=== PATIENT | female | born 1940 | race Caucasian/White ===

== ENCOUNTER 2016-06-02 16:12 | Emergency (ER) | payer OTHER ==
[2016-06-02 16:30] VITALS: TEMP 98.1
--- NOTE | 2016-06-02 17:25 | EDPHY ---
HPI/HX/ROS/PE/MDM Narrative: CHIEF COMPLAINT: Worsening restless leg symptoms. HPI: The patient is a 75-year-old female with complicated past medical history significant for restless leg syndrome and abnormal vestibular system. The patient is recently in town from [place]. She reports significant worsening of her restless legs symptoms at night as well as a generalized shakiness. She notes that in the past this has happened when she has had low sodium. She initially presented to urgent care to get her sodium level checked, but they sent her to the ER for further evaluation. The patient denies any new numbness , weakness or tingling. No fever. She does report increased urination. The patient also reports that she was recently diagnosed with shingles on her chest but is not currently taking any medication. REVIEW OF SYSTEMS: Aside from elements discussed in the HPI, a comprehensive 10-point review of systems was reviewed and is negative. PMH: Restless leg syndrome, periodic limb movements. This tibial abnormality. SOCIAL HISTORY: Lives part-time in [place] part-time [place]. Primary care physician is Dr. Navas. Denies alcohol or drug abuse. PHYSICAL EXAM: General:Patient is alert, in no acute distress. Head: Normocephalic and atraumatic ENT:Eyes are normal to inspection. ENT inspection normal. Neck: Normal inspection. Full range of motion. Respiratory:No respiratory distress. Breath sounds normal bilaterally. Cardiovascular: Regular rate and rhythm. Strong peripheral pulses. Normal cap refill. Abdomen:The abdomen is nontender to palpation. There are no peritoneal signs. There are normal bowel sounds. Back: Normal to inspection. No tenderness to palpation. Extremities: Normal appearance. Full range of motion. Neuro: Oriented x3. Normal motor function. Normal sensory function. MDM: This patient presents essentially to make sure that she does not have an abnormally low sodium level. We checked her labs which are unremarkable. She is comfortable with going home without further workup. - Data Points Laboratory Results: Laboratory Results 06/02/16 17:30 06/02/16 17:30 06/02/16 06/02/16 06/02/16 17:35 17:30 17:30 WBC 6.50 10^3/uL 10^3/uL (3.80-9.50) RBC 4.26 10^6/uL 10^6/uL (4.18-5.33) Hgb 12.9 g/dL g/dL (12.6-16.3) Hct 37.5 % L % (38.0-47.0) MCV 88.0 fL fL (81.5-99.8) MCH 30.3 pg pg (27.9-34.1) MCHC 34.4 g/dL g/dL (32.4-36.7) RDW 13.7 % % (11.5-15.2) Plt Count 422 10^3/uL H 10^3/uL (150-400) MPV 8.7 fL fL (8.7-11.7) Neut % (Auto) 59.5 % % (39.3-74.2) Lymph % (Auto) 31.2 % % (15.0-45.0) [place] % (Auto) 7.2 % % (4.5-13.0) Eos % (Auto) 1.2 % % (0.6-7.6) Baso % (Auto) 0.6 % % (0.3-1.7) Nucleat RBC Rel Count 0.0 % % (0.0-0.2) Absolute Neuts (auto) 3.86 10^3/uL 10^3/uL (1.70-6.50) Absolute Lymphs (auto) 2.03 10^3/uL 10^3/uL (1.00-3.00) Absolute Monos (auto) 0.47 10^3/uL 10^3/uL (0.30-0.80) Absolute Eos (auto) 0.08 10^3/uL 10^3/uL (0.03-0.40) Absolute Basos (auto) 0.04 10^3/uL 10^3/uL (0.02-0.10) Absolute Nucleated RBC 0.00 10^3/uL 10^3/uL (0-0.01) Immature Gran % 0.3 % % (0.0-1.1) Immature Gran # 0.02 10^3/uL 10^3/uL (0.00-0.10) Sodium 132 mEq/L L mEq/L (134-144) Potassium 4.5 mEq/L mEq/L (3.5-5.2) Chloride 94 mEq/L L mEq/L (97-110) Carbon Dioxide 28 mEq/l mEq/l (22-31) Anion Gap 10 mEq/L mEq/L (8-16) BUN 11 mg/dL mg/dL (7-23) Creatinine 0.7 mg/dL mg/dL (0.6-1.0) Estimated GFR > 60 Glucose 110 mg/dL H mg/dL (70-100) Calcium 9.6 mg/dL mg/dL (8.5-10.4) Urine Color COLORLESS Urine Appearance CLEAR Urine pH 6.0 (5.0-7.5) Ur Specific [place] 1.002 (1.002-1.030) Urine Protein NEGATIVE (NEGATIVE) Urine Ketones NEGATIVE (NEGATIVE) Urine Blood NEGATIVE (NEGATIVE) Urine Nitrate NEGATIVE (NEGATIVE) Urine Bilirubin NEGATIVE (NEGATIVE) Urine Urobilinogen NEGATIVE EU EU (0.2-1.0) Ur Leukocyte Esterase NEGATIVE (NEGATIVE) Urine Glucose NEGATIVE (NEGATIVE) General Time Seen by Provider: 06/02/16 17:10 Initial Vital Signs: Initial Vital Signs Temperature (C) 36.7 C 06/02/16 16:20 Heart Rate 78 06/02/16 16:20 Respiratory Rate 18 06/02/16 16:20 Blood Pressure 130/77 H 06/02/16 16:20 O2 Sat (%) 94 06/02/16 16:20 O2 Delivery Mode Room Air Allergies/Adverse Reactions: prednisone Allergy (Intermediate, Verified 06/02/16 16:31) hypertension/palpitations ANTIHISTAMINES Allergy (Intermediate, Uncoded 07/16/09 00:30) Other-Enter Comments CIMITRAL Allergy (Unknown, Uncoded 07/16/09 00:30) Unknown Home Medications: Medication Instructions Recorded CLONAZEPAM 07/15/09 Omeprazole 40 mg PO DAILY 06/02/16 Departure - Departure Disposition: Home, Routine, Self-Care Clinical Impression: Restless leg syndrome Condition: Good Instructions: Restless Legs Syndrome (ED) Additional Instructions: Follow-up with your primary doctor within 72 hours. Return to the Emergency Department for fever, chest pain, shortness of breath, increasing pain or other worsening of condition. Referrals: Jorge Navas MD [Primary Care Provider] - As per Instructions
[2016-06-02 17:57] LABS: % IMMATURE GRANULYOCYTES 0.3 % (0.0-1.1); ABSOLUTE IMMATURE GRANULOCYTES 0.02 10^3/uL (0.00-0.10); ADD DIFF? NO; ADD MORPH? NO; ADD SCAN? NO; ATYPICAL LYMPHOCYTE FLAG 20 (0-99); FRAGMENT RBC FLAG 0 (0-99); HEMATOCRIT 37.5 % (38.0-47.0); HEMOGLOBIN 12.9 g/dL (12.6-16.3); LEFT SHIFT FLG 0 (0-99); LIPEMIA HEMOLYSIS FLAG 90 (0-99); MEAN CELL HEMOGLOBIN 30.3 pg (27.9-34.1); MEAN CELL HEMOGLOBIN CONCENTR. 34.4 g/dL (32.4-36.7); MEAN PLATELET VOLUME 8.7 fL (8.7-11.7); PLATELET CLUMPS FLAG 10 (0-99); PLATELET COUNT 422 10^3/uL (150-400); RED BLOOD CELL COUNT 4.26 10^6/uL (4.18-5.33); RED CELL DISTRIBUTION WIDTH 13.7 % (11.5-15.2)
[2016-06-02 18:09] LABS: ANION GAP 10 mEq/L (8-16); CALCIUM 9.6 mg/dL (8.5-10.4); CARBON DIOXIDE 28 mEq/l (22-31); CHLORIDE 94 mEq/L (97-110); CREATININE 0.7 mg/dL (0.6-1.0); GLOMERULAR FILTRATION RATE > 60; GLUCOSE 110 mg/dL (70-100); POTASSIUM 4.5 mEq/L (3.5-5.2); SODIUM 132 mEq/L (134-144)
[2016-06-02 18:28] LABS: COLOR COLORLESS; LEUKOCYTE ESTERASE,URINE NEGATIVE (NEGATIVE); NITRITE,URINE NEGATIVE (NEGATIVE)
[2016-06-02 18:55] VITALS: BP 132/77; PULSE 88; RESP 16; O2SAT 96
== END 2016-06-02 18:53 | disposition home or self-care (01) ==
DX: G25.81 Restless legs syndrome (principal)

== ENCOUNTER 2017-07-17 20:56 | Emergency (ER) | payer OTHER ==
[2017-07-17 21:41] LABS: PLATELET COUNT 363 10^3/uL (150-400)
--- NOTE | 2017-07-17 21:47 | CPEKG ---
Heart Rate: 64 RR Interval: 938 P-R Interval: 196 QRSD Interval: 96 QT Interval: 416 QTC Interval: 430 P Delta: 53 QRS Delta: -11 T Wave Delta: 69 EKG Severity - ABNORMAL ECG - EKG Impression: SINUS RHYTHM EKG Impression: PROBABLE ANTEROSEPTAL INFARCT, OLD Electronically Signed By: Damaris Fraire 17-Jul-2017 22:46:57
--- NOTE | 2017-07-17 22:27 | EDPHY ---
H & P Smoking Status: Former smoker Time Seen by Provider: 07/17/17 21:36 HPI/ROS: HPI Blurry vision. 76-year-old female by private vehicle with her friend. 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 She has seen a retinal specialist here in [facility] recently. She reports that she also has a left-sided chronic vestibular neuritis that gives her balance problems. She reports that she took a nap today. She woke up at 5:30 p.m. And had blurry vision from both eyes which she describes as symmetrical. She has had blurry vision in her eyes in the past. She has seen an mcat tutor in [facility] where she lives part-time as well and has been told this is secondary to residual affects from cataract surgery. She reports however that her blurry vision this evening at 5:30 p.m. Seems worse than usual. She also complains of chest wall pain left mid anterior lateral. She reports that she has had this multiple times in the past and states that it is worse when she palpates the rib area involved. She has been seen by local physicians here and standard cardiac workups with provocative testing all of which has been unremarkable. She has been diagnosed with costal chondritis. She denies any other complaints. ROS: Constitutional: No fever, no chills. No weakness. Eyes: No discharge. As above. No ocular pain. ENT: No sore throat. No nasal congestion or rhinorrhea. Respiratory: No cough. No shortness of breath. Cardiac: As above, no palpitations. Gastrointestinal: No abdominal pain, no vomiting, no diarrhea. Genitourinary: No hematuria. No dysuria or increased frequency with urination. Musculoskeletal: No back pain. No neck pain. No myalgias or arthralgias. Skin: No rashes. Neurological: No headache. No focal weakness or altered sensation. Past medical history: Hyponatremia, hysterectomy, as above. She received her healthcare both here and in [place] in [place]. Social history: She is with her friend. Nonsmoker. No alcohol. Physical Exam: General Appearance: Alert, no distress. This patient is responding to questions appropriately and in full sentences. This patient appears well- hydrated and well-nourished. Eyes: Pupils equal and round and reactive to light bilaterally at 3-1 mm, no pallor or injection. No lid edema, erythema or injection. Respiratory: There are no retractions, lungs are clear to auscultation with good air movement bilaterally. Cardiovascular: Regular rate and rhythm. No murmur. Gastrointestinal: Abdomen is soft and nontender, no masses, bowel sounds normal. No focal tenderness at McBurney's point. No Josue sign. Neurological: Motor sensory function is grossly intact. Cranial nerves are normal. Cerebellar function is normal. Gait is normal. Skin: Warm and dry, no rashes. Musculoskeletal: Neck is supple and nontender. Extremities are symmetrical. All joints range without pain or impingement. Psychiatric: No agitation. No depression. Database: EKG: EKG time is 9:45 p.m.; EKG shows a narrow complex normal sinus rhythm with a ventricular rate of 64. The DC, QRS, QT intervals are within normal limits. There are no ST-T wave changes indicative of ischemic or injury pattern. No evidence of right heart strain. Interpreted by me. Imaging: CT scan of head without contrast: Negative for acute pathology. Some atrophy noted. Results were discussed with staff radiologist Dr. Benjie Champion. Bilateral carotid artery Doppler ultrasounds. Procedures: Emergency department course: Vital signs reviewed. She has mild to moderate hypertension. Vital signs otherwise normal. Her neurologic Assessment is reassuring. Visual acuities will be obtained. EKG obtained and reviewed by myself. She consents to noncontrast CT imaging of her brain and carotid artery Doppler ultrasounds. Visual acuities; 20/30 on the right, 20/50 on the left, 20/30 bilaterally. Patient's blood work reviewed. Hyponatremia with a sodium of 124 noted. The patient does have a history of chronic hyponatremia. Her baseline seems to run in the 127-130 range. Other than the complaint of blurry vision she has been asymptomatic. I do not feel that her hyponatremia now is causing her current symptoms. Assuming her imaging is unremarkable. I feel she can be discharged safely to home with her friend and follow-up on Thursday with her primary care physician and her mcat tutor for re-evaluation of her vision and repeat of her sodium. This plan was discussed with her at 11:05 p.m.. She feels comfortable with this. Her care was turned over to Dr. Caden Enciso at 11: 00 p.m.. He will follow up on results of carotid artery Doppler ultrasounds. Differential Diagnosis: The differential diagnosis on this patient includes but is not limited to cataracts, fatigue. CVA, glaucoma, MS, Guillain-Sheridan retinal detachment, vitreous humor detachment unlikely. This represents a partial list of diagnoses considered. These considerations are based on history, physical exam , past history, reassessment and diagnostic testing. (Damaris Fraire) Constitutional: Initial Vital Signs Temperature (C) 36.6 C 07/17/17 21:01 Heart Rate 67 07/17/17 21:01 Respiratory Rate 16 07/17/17 21:01 Blood Pressure 141/84 H 07/17/17 21:01 O2 Sat (%) 92 07/17/17 21:01 O2 Delivery Mode Room Air Allergies/Adverse Reactions: prednisone Allergy (Intermediate, Verified 07/17/17 21:05) hypertension/palpitations ANTIHISTAMINES Allergy (Intermediate, Uncoded 07/17/17 21:05) Other-Enter Comments CIMITRAL Allergy (Unknown, Uncoded 07/17/17 21:05) Unknown Home Medications: Medication Instructions Recorded CLONAZEPAM 07/15/09 Omeprazole 40 mg PO DAILY 06/02/16 Medical Decision Making - Diagnostics Imaging Results: Imaging Impressions Carotid Doppler Study 07/17/17 22:20 Impression: 1. Mild atherosclerotic disease bilateral carotid bulbs. 2. Velocities correlate to less than 50% diameter stenosis of the origin of the right internal carotid artery. 3. Velocities correlate to less than 50% diameter stenosis of the origin of the left internal carotid artery. 4. Bilateral vertebral arteries are patent with antegrade flow. Measurement of carotid stenosis is based on velocity parameters that correlate the residual internal carotid diameter with [place] Symptomatic Carotid Endarterectomy Trial (NASCET) based stenosis levels. Findings and recommendations discussed with Emergency Department physician, Dr. Enciso at 23:31 hour, 07/17/2017. Final report concurs with initial preliminary interpretation. Head CT 07/17/17 22:20 Impression: 1. Mild atrophy. 2. No acute hemorrhage, hydrocephalus, or mass effect. 3. Cerebrovascular atherosclerosis. 4. No definite acute infarct. 5. Mild microvascular ischemic gliosis. 6. Consider MRI of the brain, if there is continued clinical concern. Findings and recommendations discussed with Emergency Department physician, Damaris Fraire MD at 22:54 hour, 07/17/2017. Final report concurs with initial preliminary interpretation. ED Course/Re-evaluation: 2358: I was asked to follow-up this patient's ultrasound results. The ultrasounds of the carotids were unremarkable severe occlusion or significant plaque. I did go and see and evaluate the patient she is resting comfortably she is eager to be discharged in requesting discharge she wants to go home. I did discuss that her sodium is low and she needs close follow-up with her primary care doctor about this. She does understand over the weekend if she gets worsening weakness dizziness lightheadedness does not feel well can get a better has trouble walking she should return to the emergency room. She understands. I encouraged her to increase her salt intake orally. Return precautions discussed she is comfortable this plan. Eager to be discharged. (Caden Enciso) - Data Points Laboratory Results: Laboratory Results 07/17/17 21:30 07/17/17 21:30 07/17/17 07/17/17 21:30 21:30 WBC 6.86 10^3/uL 10^3/uL (3.80-9.50) RBC 4.12 10^6/uL L 10^6/uL (4.18-5.33) Hgb 12.7 g/dL g/dL (12.6-16.3) Hct 36.2 % L % (38.0-47.0) MCV 87.9 fL fL (81.5-99.8) MCH 30.8 pg pg (27.9-34.1) MCHC 35.1 g/dL g/dL (32.4-36.7) RDW 13.7 % % (11.5-15.2) Plt Count 363 10^3/uL 10^3/uL (150-400) MPV 8.5 fL L fL (8.7-11.7) Neut % (Auto) 58.8 % % (39.3-74.2) Lymph % (Auto) 28.9 % % (15.0-45.0) [place] % (Auto) 9.8 % % (4.5-13.0) Eos % (Auto) 2.0 % % (0.6-7.6) Baso % (Auto) 0.4 % % (0.3-1.7) Nucleat RBC Rel Count 0.0 % % (0.0-0.2) Absolute Neuts (auto) 4.03 10^3/uL 10^3/uL (1.70-6.50) Absolute Lymphs (auto) 1.98 10^3/uL 10^3/uL (1.00-3.00) Absolute Monos (auto) 0.67 10^3/uL 10^3/uL (0.30-0.80) Absolute Eos (auto) 0.14 10^3/uL 10^3/uL (0.03-0.40) Absolute Basos (auto) 0.03 10^3/uL 10^3/uL (0.02-0.10) Absolute Nucleated RBC 0.00 10^3/uL 10^3/uL (0-0.01) Immature Gran % 0.1 % % (0.0-1.1) Immature Gran # 0.01 10^3/uL 10^3/uL (0.00-0.10) Sodium 124 mEq/L L mEq/L (135-145) Potassium 4.5 mEq/L mEq/L (3.5-5.2) Chloride 87 mEq/L L mEq/L (97-110) Carbon Dioxide 27 mEq/l mEq/l (22-31) Anion Gap 10 mEq/L mEq/L (8-16) BUN 14 mg/dL mg/dL (7-23) Creatinine 0.5 mg/dL L mg/dL (0.6-1.0) Estimated GFR > 60 Glucose 91 mg/dL mg/dL (70-100) Calcium 8.9 mg/dL mg/dL (8.5-10.4) Troponin I < 0.012 ng/mL ng/mL (0.000-0.034) Departure - Departure Disposition: Home, Routine, Self-Care Clinical Impression: Blurry vision, Hyponatremia Condition: Good Instructions: Hyponatremia (ED), Blurred Vision (ED) Additional Instructions: Read and follow provided instructions. Follow-up with your mcat tutor, early this week for re-evaluation of your vision. You will also need to follow up with your primary care physician to have your sodium rechecked on Thursday. Return to the emergency department for worsening vision, difficulty walking, confusion, headache or other serious concerns. Referrals: Jorge Navas MD [Primary Care Provider] - As per Instructions
[2017-07-18 00:14] VITALS: BP 141/87
== END 2017-07-18 00:13 | disposition home or self-care (01) ==
DX: H53.8 Other visual disturbances (principal); E87.1 Hypo-osmolality and hyponatremia; Z87.891 Personal history of nicotine dependence

== ENCOUNTER 2017-07-19 16:17 | Emergency (ER) | payer OTHER ==
--- NOTE | 2017-07-19 16:49 | EDPHY ---
H & P Stated Complaint: blurred vision, dizziness, concerned re low NA Time Seen by Provider: 07/19/17 16:37 HPI/ROS: HPI: This is a 76-year-old female who presents with Chief Complaint: blurred vision, dizziness, concerned re low NA Location: head Quality: Blurred vision, dizziness Duration: Several days Signs and Symptoms: no fever, no nausea, no vomiting, no photophobia, no noise sensitivity, no neck stiffness, no ear pain, no tinnitus, no nasal congestion, no sinus pressure, no weakness, no radiation, no aura Timing: Worsening Severity: Moderate Context: Patient has a history of hyponatremia and 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 She reports that she has continued blurred vision from both eyes which she describes as symmetrical. She reports that weather changes as well as changes in the barometric pressure increases her dizziness. She has had cataract surgery in the past and has residual blurriness. She has been seen by retinal specialist here in [facility] recently. Patient uses a cane to aid ambulation at baseline. Requesting gum as it improves her dizziness. Patient was seen in this emergency room on 07/17/2017 with laboratory studies show sodium level of 124 and her baseline is normally 127-130. EKG showed no acute findings or arrhythmia. Head CT scan shows no acute intracranial process. Carotid ultrasound bilateral showed mild atherosclerotic disease bilateral carotid bulbs correlating to less than 50%. Visual acuity was 20/30 on the right, 20/50 on the left, 20/30 bilateral. Modifying Factors: None Comment: ROS: see HPI Constitutional: No fever, no chills, no weight loss Eyes: No blurred vision Respiratory: No shortness of breath, no cough Cardiovascular: No chest pain, no palpitations Gastrointestinal: No nausea, no vomiting, no diarrhea, no hematemesis, no blood in stool Genitourinary: No dysuria, no blood in urine Extremities: No myalgias, no edema Neurologic: No weakness, no numbness Skin: No rashes, no petechiae Hematologic: No bruising, no bleeding MEDICAL/SURGICAL/SOCIAL HISTORY: Medical history: "periodic limb movements," "inner ear balance nerves destroyed ," hyponatremia Surgical history: hysterectomy, knee scope Social history: Family history noncontributory. CONSTITUTIONAL: Extremely well-appearing elderly white female who is very talkative, awake and alert, no obvious distress HEENT: Atraumatic and normocephalic, PERRL, EOMI. Bilateral cataract changes noted in both eyes; Nares patent; no rhinorrhea; no nasal mucosal edema. Tympanic membranes clear. Oropharynx clear, no exudate and moist pink mucosa. Airway patent. No lymphadenopathy. No meningismus. Cardiovascular: Normal S1/S2, regular rate, regular rhythm, without murmur rub or gallop. PULMONARY/CHEST: Symmetrical and nontender. Clear to auscultation bilaterally. Good air movement. No accessory muscle usage. ABDOMEN: Soft, nondistended, nontender, no rebound, no guarding, no peritoneal signs, no masses or organomegaly. No CVAT. EXTREMITIES: 2/2 pulses, strength 5/5, no deformities, no clubbing, no cyanosis or edema. NEUROLOGICAL: no focal neuro deficits. GCS 15. Cranial nerves 2-12 grossly intact. SKIN: Warm and dry, no erythema. no rash. Good capillary refill. Source: Patient, Old records Exam Limitations: No limitations - Medical/Surgical History Hx Asthma: No Hx Chronic Respiratory Disease: No Hx Diabetes: No Hx Cardiac Disease: No Hx Renal Disease: No Hx Cirrhosis: No Hx Alcoholism: No Hx HIV/AIDS: No Hx Splenectomy or Spleen Trauma: No Other PMH: "periodic limb movements". "inner ear balance nerves destroyed". hyponatremia, hystectomy, knee scope - Social History Smoking Status: Former smoker Constitutional: Initial Vital Signs Temperature (C) 36.7 C 07/19/17 16:20 Heart Rate 77 07/19/17 16:20 Respiratory Rate 17 07/19/17 16:20 Blood Pressure 142/72 H 07/19/17 16:20 O2 Sat (%) 97 07/19/17 16:20 O2 Delivery Mode Room Air Allergies/Adverse Reactions: prednisone Allergy (Intermediate, Verified 07/19/17 16:18) hypertension/palpitations ANTIHISTAMINES Allergy (Intermediate, Uncoded 07/17/17 21:05) Other-Enter Comments CIMITRAL Allergy (Unknown, Uncoded 07/17/17 21:05) Unknown Home Medications: Medication Instructions Recorded CLONAZEPAM 07/15/09 Omeprazole 40 mg PO DAILY 06/02/16 Medical Decision Making ED Course/Re-evaluation: Vital signs reviewed and stable upon arrival. BNP level drawn 1555: Sodium level 134. Patient now tells me that she had a pubic fracture on the left side in May of 2017. She follows up with her orthopedist, Dr. Clayton, on Thursday and is supposed to have repeat x-rays but she is requesting them today in the emergency room. Denies bowel or bladder problems. She does have mild-to- moderate pain in the area of injury at times. 1824: Called to patient's room again. Patient now wants to wait until her appointment with Orthopedics on Thursday for her pelvic x-ray. No signs of neurovascular compromise/tenting of skin/compartment syndrome/ extremities and joints examined above and below area of concern and are neurovascularly intact. This patient was seen under the supervision of my secondary supervising physician. I evaluated care for this patient independently. Discussed this patient with Dr. Fraire who did not see the patient. Differential Diagnosis: Dizziness including but not limited to peripheral and central causes of vertigo , orthostatic causes including dehydration, and blood loss. - Data Points Laboratory Results: Laboratory Results 07/19/17 16:34 07/19/17 16:34 Sodium 134 mEq/L L mEq/L (135-145) Potassium 5.2 mEq/L mEq/L (3.5-5.2) Chloride 96 mEq/L L mEq/L (97-110) Carbon Dioxide 26 mEq/l mEq/l (22-31) Anion Gap 12 mEq/L mEq/L (8-16) BUN 17 mg/dL mg/dL (7-23) Creatinine 0.5 mg/dL L mg/dL (0.6-1.0) Estimated GFR > 60 Glucose 74 mg/dL mg/dL (70-100) Calcium 9.8 mg/dL mg/dL (8.5-10.4) Specimen Hemolysis 162 Departure - Departure Disposition: Home, Routine, Self-Care Clinical Impression: Chronic hyponatremia, History of fracture of pelvis Condition: Good Instructions: Hyponatremia (ED), Pelvic Fracture (ED) Additional Instructions: Your sodium level today was 134. Please keep your orthopedic appointment on Thursday with Dr. Clayton. He will have x-rays performed in his office at that time. Referrals: Jorge Navas MD [Primary Care Provider] - As per Instructions Jose Clayton MD [Medical Doctor] - 07/21/17
[2017-07-19 18:39] VITALS: BP 172/107
== END 2017-07-19 18:39 | disposition home or self-care (01) ==
DX: E87.1 Hypo-osmolality and hyponatremia (principal); Z87.81 Personal history of (healed) traumatic fracture; Z87.891 Personal history of nicotine dependence

== ENCOUNTER → 2017-08-05 | Outpatient (CLI) | payer OTHER | LOC: FIMAGING 17:15 | PROVIDERS: ATTEND Orthopaedic Surgery Sports Medicine | DX: M84.350D Stress fracture, pelvis, subsequent encounter for fracture with routine healing (principal); M25.851 Other specified joint disorders, right hip; M25.852 Other specified joint disorders, left hip; S76.312A Strain of muscle, fascia and tendon of the posterior muscle group at thigh level, left thigh, initial encounter; S76.311A Strain of muscle, fascia and tendon of the posterior muscle group at thigh level, right thigh, initial encounter; M76.01 Gluteal tendinitis, right hip; M76.02 Gluteal tendinitis, left hip; M51.36 Other intervertebral disc degeneration, lumbar region ==

== ENCOUNTER → 2017-08-12 | Outpatient (CLI) | payer OTHER | LOC: FIMAGING 13:00 | PROVIDERS: ATTEND Orthopaedic Surgery Sports Medicine | DX: Z13.820 Encounter for screening for osteoporosis (principal); M81.0 Age-related osteoporosis without current pathological fracture ==